=== PATIENT | male | born 1950 | race Two or more races ===

== ENCOUNTER 2025-07-03 11:53 | Inpatient (IN) | payer MEDICAID, OTHER ==
[~2025-07-03] VITALS: Ht 165.1 cm; Wt 38.6 kg
[2025-07-03] MEDS: IV NS 0.9% 1,000 ML BAG IV ONE (12:36)
[2025-07-03] MEDS: IV NS 0.9% 100 ML BAG IV ONE (12:40)
[2025-07-03 12:51] LABS: CALCIUM, SERUM 9.0 mg/dL (8.5-10.1); CREATININE 3.1 mg/dL (0.6-1.3); SODIUM SERUM 136 mmol/L (136-145); UREA NITROGEN, BLOOD 56 mg/dL (7-18)
[2025-07-03 13:37] LABS: PLATELET COUNT (AUTO) 116 K/uL (150-450); RED BLOOD CELL COUNT(AUTO) 3.72 MIL/uL (4.5-6.0); RED CELL DISTRIBUTION WIDTH 16.6 % (11.5-15.0); WHITE BLOOD COUNT (AUTO) 3.5 K/uL (4.3-11.0)
[2025-07-03 13:48] LABS: INR 1.31 (0.91-1.10)
[2025-07-03] MEDS: DEXTROSE 50%-WATER 50 ML DISP.SYRIN IV ONE (14:30)
[2025-07-03] MEDS ORDERED: MAGNESIUM HYDROXIDE 30 ML UDC PO PRN (14:30)
[2025-07-03] MEDS ORDERED: MAG HYDROX/AL HYDROX/SIMETH 30 ML UDC PO PRN (14:30)
[2025-07-03] MEDS ORDERED: ACETAMINOPHEN 325 MG TABLET PO PRN (14:30)
[2025-07-03] MEDS ORDERED: Z GUARD REMEDY 4 OZ OINT TP PRN (14:30)
[2025-07-03] MEDS ORDERED: ONDANSETRON HCL/PF 4 MG/2 ML VIAL IVP PRN (14:30)
[2025-07-03] MEDS ORDERED: DEXTROSE 50%-WATER 50 ML DISP.SYRIN ONE (14:30)
[2025-07-03] MEDS ORDERED: SEVE0.8P PO (15:34)
[2025-07-03] MEDS ORDERED: OXYC5TAB3 PO (15:34)
[2025-07-03] MEDS ORDERED: AMIN887L PO (15:34)
[2025-07-03] MEDS ORDERED: ASPI-1169 PO (15:34)
[2025-07-03] MEDS ORDERED: NALO4SPR NS (15:34)
[2025-07-03] MEDS ORDERED: VIT1TABL44 PO (15:34)
[2025-07-03] MEDS ORDERED: DOCU100T2 PO (15:34)
[2025-07-03] MEDS ORDERED: NITR0.4T48 SL (15:34)
[2025-07-03] MEDS ORDERED: DARB25DI SQ (15:34)
[2025-07-03] MEDS ORDERED: ATOR40TA PO (15:34)
[2025-07-03] MEDS ORDERED: DONE10TA44 PO (15:34)
[2025-07-03] MEDS ORDERED: ACET-73 PO (15:34)
[2025-07-03] MEDS ORDERED: ACET-3117 PO (15:34)
[2025-07-03] MEDS ORDERED: HEPA50007 SQ (15:34)
[2025-07-03] MEDS ORDERED: PANT40TA2 PO (15:34)
[2025-07-03 17:53] VITALS: BP 121/71; TEMP 97.7; O2SAT 96
[2025-07-03 20:56] VITALS: BP 161/68; TEMP 97.5; O2SAT 96
[2025-07-03 21:00] VITALS: BP 120/70
[2025-07-03] MEDS ORDERED: oxyCODONE IR immediate release 5 MG TABLET PO PRN (21:00)
[2025-07-03] MEDS: DONEPEZIL 5 MG TABLET PO SCH (21:27)
[2025-07-03] MEDS: ATORVASTATIN 40 MG TABLET PO SCH (21:27)
[2025-07-04] VITALS (8 sets, daily range): BP systolic 109–179; BP diastolic 46–70; TEMP 97.3–97.9; O2SAT 96–100
[2025-07-04] MEDS: PANTOPRAZOLE 40 MG TABLET.DR PO SCH (08:27)
[2025-07-04] MEDS: SEVELAMER CARBONATE 800 MG POWD.PACK PO SCH (08:27)
[2025-07-04] MEDS: ASPIRIN 81 MG TAB.CHEW PO SCH (08:27)
[2025-07-04] MEDS: DOCUSATE SODIUM 100 MG CAPSULE PO SCH (08:27)
[2025-07-04 11:44] LABS: PLATELET COUNT (AUTO) 116 K/uL (150-450); RED BLOOD CELL COUNT(AUTO) 3.56 MIL/uL (4.5-6.0); RED CELL DISTRIBUTION WIDTH 18.2 % (11.5-15.0); WHITE BLOOD COUNT (AUTO) 2.9 K/uL (4.3-11.0)
[2025-07-04 11:48] LABS: CALCIUM, SERUM 9.5 mg/dL (8.5-10.1); CREATININE 3.7 mg/dL (0.6-1.3); PHOSPHORUS 3.4 mg/dL (2.5-4.9); SODIUM SERUM 137.0 mmol/L (136-145); UREA NITROGEN, BLOOD 62.0 mg/dL (7-18)
[2025-07-04 21:16] LABS: PROTEIN, BODY FLUID 4.7 G/DL
[2025-07-04 21:55] LABS: APPEARANCE,SPUN,BODY FLUID CLEAR (CLEAR); TOTAL VOLUME,BODY FLUID 1700 mL; WBC, BODY FLUID 228 /cu. mm. (0-200)
[2025-07-04 21:56] LABS: MONOCYTES,BODY FLUID 5 %
[2025-07-04] MEDS ORDERED: ALBUMIN 25% 100 ML IV ONE (22:09)
[2025-07-04] MEDS: ALBUMIN 25% 25 GM in PREMIX 1 EA IV PRN (22:15)
[2025-07-05 07:00] VITALS: BP 128/86; TEMP 97.5; O2SAT 98
[2025-07-05 12:07] LABS: FOLIC ACID > 20.0 ng/mL (>3.0)
[2025-07-05 16:00] VITALS: BP 117/78; TEMP 98.1; O2SAT 100
[2025-07-05 21:29] VITALS: BP 163/69; TEMP 96.9; O2SAT 94
[2025-07-05] MEDS: hydrALAZINE HCL IV 20 MG VIAL IV PRN (23:39)
[2025-07-06 00:30] VITALS: BP 100/70
[2025-07-06 08:00] VITALS: BP 126/70; TEMP 97.5; O2SAT 100
[2025-07-06] MEDS: SEVELAMER CARBONATE 800 MG TABLET PO SCH (09:43)
[2025-07-06] MEDS ORDERED: LEVO500T90 PO (15:41)
[2025-07-06 16:00] VITALS: BP 133/52; TEMP 97.3; O2SAT 96
[2025-07-08 08:06] LABS: VITAMIN B1 THIAMINE,WB 105.9 nmol/L (66.5-200.0)
== END 2025-07-06 19:11 | DRG 194 ==
LOC: ER 12:00 → MED 14:49 → TELE 15:45 → MED 07-04 12:31
PROVIDERS: ADMIT Internal Medicine; ATTEND Internal Medicine
PROC: 0W993ZZ Drainage of Right Pleural Cavity, Percutaneous Approach (ICD-10-PCS; principal; 2025-07-04)
PROC: 5A1D70Z Performance of Urinary Filtration, Intermittent, Less than 6 Hours Per Day (ICD-10-PCS; 2025-07-04)
DX: J90 Pleural effusion, not elsewhere classified (principal); I13.2 Hypertensive heart and chronic kidney disease with heart failure and with stage 5 chronic kidney disease, or end stage renal disease; G93.41 Metabolic encephalopathy; E86.0 Dehydration; N18.6 End stage renal disease; R62.7 Adult failure to thrive; J93.9 Pneumothorax, unspecified; D64.9 Anemia, unspecified; E11.22 Type 2 diabetes mellitus with diabetic chronic kidney disease; Z99.2 Dependence on renal dialysis; F03.90 Unspecified dementia, unspecified severity, without behavioral disturbance, psychotic disturbance, mood disturbance, and anxiety; E78.5 Hyperlipidemia, unspecified; J98.4 Other disorders of lung; Z86.73 Personal history of transient ischemic attack (TIA), and cerebral infarction without residual deficits; I50.22 Chronic systolic (congestive) heart failure; Z87.311 Personal history of (healed) other pathological fracture; E83.89 Other disorders of mineral metabolism; Z68.1 Body mass index [BMI] 19.9 or less, adult
CPT/HCPCS: 36415; 70450-TC; 71045-TC; 80048-TC; 82040-TC; 82607-TC; 82962-TC; 83735-TC; 83921; 84100-TC; 84425; 84443-TC; 85025-TC; 85730-TC; 86317; 87070-TC; 87075-TC; 87081-TC; 87102-TC; 87340; 88104-TC; 88305-TC; 89051-TC; 90935-TC; 92526; 92611; A4216; G0378; J0360; J7030; J7050; P9047